=== PATIENT | male | born 1985 | race Caucasian/White ===

== ENCOUNTER 2017-02-14 23:59 | Emergency (ER) | payer OTHER ==
--- NOTE | ~2017-02-14 | CR72 ---
[facility] A Service of [facility] & [facility] RADIOLOGY TEXT RESULTS PATIENT: JOSE KHAN LOCATION: [facility] : 85 UNIT #: [id number] AGE: [address]: Sean Dupree MD SEX: M ORDER DR: [id number] [facility] [address] [place], [place] [address] [id number] MR#: [id number] Acc #: [id number] NAME: JOSE KHAN. : 1985 SEX: M STUDY DATE/TIME: 02/15/2017 1:47 UNIT: [facility] ROOM: STUDY DESCRIPTION: CR Chest Single View Portable Attending Physician: Sean Dupree M.D. Ordering Physician: Sean Dupree M.D. Primary Care Physician: Primary Care Physician No MEDICAL IMAGING REPORT This report is preliminary unless electronic signature is present EXAM Portable chest INDICATIONS Chest pain for 1 day. Pain with deep inspiration, 02/15 COMPARISON 01/06/2015. FINDINGS A portable view of the chest was obtained. The heart size and vascularity are normal, the lungs are clear and the bones are normal. IMPRESSION No active disease. Dictated by... Tj Marquez M.D. THIS IS AN ELECTRONICALLY VERIFIED REPORT Tj Marquez M.D. at 02/15/2017 5:54 AM THERESE/jaswant TD: 02/15/2017 04:08 JOB #: [id number] MEDICAL IMAGING REPORT Page 1 of 1 COPY
--- NOTE | ~2017-02-14 | EKG ---
PATIENT: JOSE KHAN UNIT #: [id number] Ventricular Rate: 80 BPM Atrial Rate: 80 BPM P-R Interval: 178 ms QRS Duration: 86 ms Q-T Interval: 360 ms QTC Calculation(Bezet): 415 ms P [place]: 64 degrees Calculated R [place]: 63 degrees Calculated T [place]: 66 degrees Diagnosis Line: Normal sinus rhythm Diagnosis Line: Normal ECG Diagnosis Line: When compared with ECG of 18-JUN-2015 21:45, Diagnosis Line: No significant change was found Diagnosis Line: Confirmed by YESSY KC MD ([id number]) on Diagnosis Line: 02/16/2017 5:42:36 AM INTERPRETING RADHA ZUÑIGA
[~2017-02-14 23:59] MED LIST: BACTRIM DS TABL1 TA1 PO; CIPRO PO; CLEOCIN150 MG PO; DICLOFENAC PO; FLEXERIL10 MG PO; FLOMAX0.4 M1 PO; IBUPROFEN800 MG PO; LORTAB 10/500 T1 TAB PO; LORTAB 7.51 TAB PO; NAPROXEN500 M1 PO; PHENERGAN25 M1 PO; VICODIN 5/1 TAB 5/50 PO
[2017-02-15 01:11] LABS: POC - CKMB <1.0 ng/mL (0.0-7.9); POC - TROPONIN <0.05 ng/mL (<=0.05)
[2017-02-15 01:22] LABS: BASOPHIL# 0.1 X10e3 (0-0.3); BASOPHIL% 1.1 % (0-2.5); EOSINOPHIL# 0.6 X10e3 (0-0.7); EOSINOPHIL% 8.1 % (0.0-7.0); HEMATOCRIT 43.6 % (38.0-50.0); LYMPHOCYTE# 3.4 X10e3 (1.0-3.5); LYMPHOCYTE% 44.7 % (17.0-45.0); MEAN CORPUSCULAR HEMOGLOBIN 30.9 PG (28-34); MEAN CORPUSCULAR HGB CONC 34.3 g/dL (30-36); MEAN PLATELET VOLUME 9.7 FL (6.5-11.5); MONOCYTE# 0.6 X10e3 (0-1.0); MONOCYTE% 7.6 % (3.0-12.0); NEUTROPHIL# 2.9 X10e3 (1.5-7.1); NEUTROPHIL% 38.5 % (40-75); PLATELET COUNT 146 X10e3 (140-420); RED BLOOD COUNT 4.84 X10e (3.90-5.60); RED CELL DISTRIBUTION WIDTH 13.1 % (11.0-15.5); WHITE BLOOD COUNT 7.5 X10e3 (4.0-10.5)
[2017-02-15 01:31] LABS: DIFF IND NO
[2017-02-15 01:37] LABS: PARTIAL THROMBOPLASTIN TIME 27.2 SECONDS (23.5-31.3)
[2017-02-15 01:53] LABS: ALBUMIN SERUM 4.1 g/dL (3.5-5.0); BILIRUBIN, DIRECT 0.1 mg/dL (0.0-0.2); BILIRUBIN,INDIRECT 0.3 mg/dL (0.0-0.9); BILIRUBIN,TOTAL 0.4 mg/dL (0.2-2.0); BUN/CREATININE RATIO 17.77; CALCIUM SERUM 9.5 mg/dL (8.4-10.2); CREATININE SERUM 0.9 mg/dL (0.6-1.4); GLOM FILT RATE Estimated 113.4 mL/min (>60); POTASSIUM 3.8 mmol/L (3.5-5.1); PROTEIN TOTAL SERUM 6.9 g/dL (6.0-8.3)
[2017-02-15 02:48] LABS: POC - CKMB <1.0 ng/mL (0.0-7.9); POC - TROPONIN <0.05 ng/mL (<=0.05)
== END 2017-02-15 03:29 | disposition home or self-care (01) ==
LOC: CED 23:59
PROVIDERS: Emergency Medicine
DX: R07.89 Other chest pain (principal); B19.20 Unspecified viral hepatitis C without hepatic coma; Z87.442 Personal history of urinary calculi; Z88.1 Allergy status to other antibiotic agents
CPT/HCPCS: 36415; 71010; 80048; 80076; 82553; 84484; 85025; 85610; 85730; 93005; 99284

== ENCOUNTER 2017-05-13 21:14 | Emergency (ER) | payer OTHER | END 2017-05-13 23:00 | disposition home or self-care (01) | LOC: CED 21:14 | DX: T78.3XXA Angioneurotic edema, initial encounter (principal); T88.6XXA Anaphylactic reaction due to adverse effect of correct drug or medicament properly administered, initial encounter; T37.0X5A Adverse effect of sulfonamides, initial encounter; J98.8 Other specified respiratory disorders; F17.200 Nicotine dependence, unspecified, uncomplicated; Z87.442 Personal history of urinary calculi; Z88.1 Allergy status to other antibiotic agents | CPT/HCPCS: 96361; 96372; 96374; 96375; 99291; J0171; J2930 ==